=== PATIENT | male | born 1980 | race Caucasian/White ===

== ENCOUNTER 2017-12-04 16:13 | Emergency (ER) | payer OTHER ==
--- NOTE | 2017-12-04 17:01 | EDM.PDOC ---
ED HPI GENERAL MEDICAL PROBLEM - General Chief Complaint: Laceration Stated Complaint: CUT LEFT MIDDLE FINGER Time Seen by Provider: 12/04/17 16:24 Source of Information: Reports: Patient, RN Notes Reviewed - History of Present Illness INITIAL COMMENTS - FREE TEXT/NARRATIVE: 37-year-old male comes in with laceration injury distal left middle finger. 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 No other injury Left Middle Hand Pain Score (Numeric/FACES): 4 - Related Data Allergies Allergy/AdvReac Type Severity Reaction Status Date / Time naproxen [From Aleve] Allergy Hives Verified 12/04/17 16:22 Sulfa (Sulfonamide Allergy Other Verified 12/04/17 16:22 Antibiotics) Home Meds: Home Meds . [No Known Home Meds] 12/04/17 [History] Past Medical History Gastrointestinal History: Reports: Other (See Below) Other Gastrointestinal History: stomach ulcer Musculoskeletal History: Reports: Other (See Below) Other Musculoskeletal History: herniated L5 - Past Surgical History Musculoskeletal Surgical History: Reports: Other (See Below) Other Musculoskeletal Surgeries/Procedures:: back surgery Social & Family History - Family History Family Medical History: Noncontributory - Tobacco Use Smoking Status *Q: Never Smoker - Caffeine Use Caffeine Use: Reports: Coffee - Recreational Drug Use Recreational Drug Use: Yes ED ROS GENERAL - Review of Systems Review Of Systems: See Below HEENT: Reports: No Symptoms Cardiovascular: Reports: No Symptoms GI/Abdominal: Denies: Nausea, Vomiting Musculoskeletal: Reports: Other (Laceration injury left middle finger) Neurological: Denies: Numbness, Tingling ED EXAM, SKIN/RASH Exam: See Below General Appearance: Alert, No Apparent Distress Head: Atraumatic Respiratory/Chest: No Respiratory Distress Extremities: Other (Three-quarter centimeter laceration horizontal distal tip of left middle finger, non-gaping, no active bleeding at this time) Course - Vital Signs Last Recorded V/S: Last Vital Signs Temp 97.8 F 12/04/17 16:19 Pulse 50 L 12/04/17 16:19 Resp 18 12/04/17 16:19 BP 114/73 12/04/17 16:19 Pulse Ox 97 12/04/17 16:19 - Re-Assessments/Exams Free Text/Narrative Re-Assessment/Exam: 12/04/17 18:21 This laceration could be sutured but really will do well even if edges just held together with Band-Aids. Patient elects to do that. Discharge instructions as documented Departure - Departure Time of Disposition: 16:53 Disposition: Home, Self-Care 01 Condition: Fair Clinical Impression: Finger laceration Qualifiers: Encounter type: initial encounter Finger: middle finger Damage to nail status: without damage Foreign body presence: without foreign body Laterality: left Qualified Code(s): S61.213A - Laceration without foreign body of left middle finger without damage to nail, initial encounter - Discharge Information Instructions: Laceration Care, Adult Referrals: Brian Duff Jr, MD [Primary Care Provider] - Forms: ED Department Discharge Additional Instructions: Keep finger protected and laceration pulled together as discussed with one or 2 Band-Aids as needed. As long as the edges are together this will heal very well and very quickly for you. However this will take about 2-3 weeks as discussed for this to get back to normal full strength. It is recommended you hold off on the guitar playing for about 2-1/2-3 weeks so that does not break open on you again. Have rechecked any sign of infection.
== END 2017-12-04 17:12 | disposition home or self-care (01) ==
LOC: JD.ED 16:13
DX: S61.213A Laceration without foreign body of left middle finger without damage to nail, initial encounter (principal); Z88.6 Allergy status to analgesic agent; Z88.2 Allergy status to sulfonamides; W26.8XXA Contact with other sharp object(s), not elsewhere classified, initial encounter; Y92.009 Unspecified place in unspecified non-institutional (private) residence as the place of occurrence of the external cause
CPT/HCPCS: 99283